=== PATIENT | female | born 1995 | race Caucasian/White ===

== ENCOUNTER 2017-11-06 14:05 | Emergency (ER) | payer BC ==
[2017-11-06 14:13] VITALS: BP 111/67
--- NOTE | 2017-11-06 14:56 | EDPHY ---
H & P Stated Complaint: R ankle injury-twisted yesterday Time Seen by Provider: 11/06/17 14:47 HPI/ROS: CHIEF COMPLAINT: Right ankle pain HISTORY OF PRESENT ILLNESS: The patient is a 22-year-old female who comes to the emergency department complaining of pain and swelling to her right lateral ankle. She states that she twisted it jumping off a fence. She has been walking on it tenderly. She denies other injuries. This happened yesterday. Severity: Moderate Modifying factors: Improves with rest and elevation REVIEW OF SYSTEMS: Constitutional: denies: chills, fever, recent illness, recent injury EENTM: denies: blurred vision, double vision, nose congestion Respiratory: denies: cough, shortness of breath Cardiac: denies: chest pain, irregular heart rate, lightheadedness, palpitations Gastrointestinal/Abdominal: denies: abdominal pain, diarrhea, nausea, vomiting, blood streaked stools Genitourinary: denies: dysuria, frequency, hematuria, pain Musculoskeletal: See HPI Skin: denies: lesions, rash, jaundice, bruising Neurological: denies: headache, numbness, paresthesia, tingling, dizziness, weakness Hematologic/Lymphatic: denies: blood clots, easy bleeding, easy bruising Immunologic/allergic: denies: HIV/AIDS, transplant 10 systems reviewed and negative except as noted EXAM: GENERAL: Well-appearing, well-nourished and in no acute distress. HEAD: Atraumatic, normocephalic. EYES: Pupils equal round and reactive to light, extraocular movements intact, sclera anicteric, conjunctiva are normal. ENT: TMs normal, nares patent, oropharynx clear without exudates. Moist mucous membranes. NECK: Normal range of motion, supple without lymphadenopathy or JVD. LUNGS: Breath sounds clear to auscultation bilaterally and equal. No wheezes rales or rhonchi. HEART: Regular rate and rhythm without murmurs, rubs or gallops. ABDOMEN: Soft, nontender, normoactive bowel sounds. No guarding, no rebound. No masses appreciated. BACK: No CVA tenderness, no spinal tenderness, step-offs or deformities EXTREMITIES: Right ankle swelling and pain laterally, no obvious deformity. No foot tenderness NEUROLOGICAL: Cranial nerves II through XII grossly intact. Normal speech, normal gait. 5/5 strength, normal movement in all extremities, normal sensation , normal reflexes PSYCH: Normal mood, normal affect. SKIN: Warm, dry, normal turgor, no visible rashes or lesions. Source: Patient Exam Limitations: No limitations - Personal History LMP (Females 10-55): 8-14 Days Ago Current Tetanus/Diphtheria Vaccine: No Current Tetanus Diphtheria and Acellular Pertussis (TDAP): No - Medical/Surgical History Hx Asthma: No Hx Chronic Respiratory Disease: No Hx Diabetes: No Hx Cardiac Disease: No Hx Renal Disease: No Hx Cirrhosis: No Hx Alcoholism: No Hx HIV/AIDS: No Hx Splenectomy or Spleen Trauma: No Other PMH: denies - Family History Significant Family History: No pertinent family hx - Social History Smoking Status: Never smoked Alcohol Use: Sober Drug Use: None Constitutional: Initial Vital Signs Temperature (C) 36.7 C 11/06/17 14:10 Heart Rate 88 11/06/17 14:10 Respiratory Rate 16 11/06/17 14:10 Blood Pressure 111/67 11/06/17 14:10 O2 Sat (%) 97 11/06/17 14:10 O2 Delivery Mode Room Air Allergies/Adverse Reactions: No Known Allergies Allergy (Unverified 11/06/17 14:10) Home Medications: Medication Instructions Recorded NK [No Known Home Meds] 11/06/17 Medical Decision Making - Diagnostics Imaging Results: Imaging Impressions Ankle X-Ray 11/06/17 14:13 Impression: No definite fracture of the right ankle. Imaging: I viewed and interpreted images myself (No fracture) ED Course/Re-evaluation: The patient is reassured with the x-ray results. We will place her in a [place] boot and have instructed her on gradual increase in weight-bearing and mobility tolerance. She is happy with this plan. She declines further workup or testing at this time. Differential Diagnosis: Partial list of the Differential diagnosis considered include but were not limited to; ankle sprain, ankle fracture and although unlikely based on the history and physical exam, I also considered dislocation, vascular injury, knee injury, foot fracture. I discussed these differential diagnoses and the plan with the patient as well as the usual and expected course. The patient understands that the diagnosis is provisional and that in medicine we are not always correct and that further workup is often warranted. Usual and customary warnings were given. All of the patient's questions were answered. The patient was instructed to return to the emergency department should the symptoms at all worsen or return, otherwise to followup with the physician as we discussed. Departure - Departure Disposition: Home, Routine, Self-Care Clinical Impression: Sprain of right ankle Qualifiers: Encounter type: initial encounter Involved ligament of ankle: unspecified ligament Qualified Code(s): S93.401A - Sprain of unspecified ligament of right ankle, initial encounter Condition: Fair Instructions: Ankle Sprain (ED) Additional Instructions: Take ibuprofen and Tylenol for pain, elevate and ice her ankle as much as possible for the next 24 hr. Referrals: NONE *PRIMARY CARE P,. [Primary Care Provider] - As per Instructions Ector Yanez MD [Medical Doctor] - 5-7 days, if not improved
== END 2017-11-06 15:05 | disposition home or self-care (01) ==
DX: S93.401A Sprain of unspecified ligament of right ankle, initial encounter (principal); X50.0XXA Overexertion from strenuous movement or load, initial encounter; Y93.39 Activity, other involving climbing, rappelling and jumping off; Y99.8 Other external cause status
CPT/HCPCS: L4386

== ENCOUNTER 2017-11-24 22:27 | Emergency (ER) | payer BC, OTHER ==
[2017-11-24] MEDS ORDERED: NS 1,000 ML IV ONE (22:32)
[2017-11-24] MEDS ORDERED: ONDANSETRON 4 MG/2 ML VIAL IVP ONE (22:32)
--- NOTE | 2017-11-24 22:38 | EDPHY ---
H & P Stated Complaint: ETOH, POSS DRUGS Time Seen by Provider: 11/24/17 22:36 HPI/ROS: HPI CHIEF COMPLAINT: Alcohol Intoxication HISTORY OF PRESENT ILLNESS: 22-year-old female presents emergency room by private vehicle with friends after she drank large amount of alcohol prior to going to her concert. She never made it to the concert as she became too intoxicated was unable to ambulate was vomiting. She presents to the emergency room vomiting. Past Medical History: Unknown medical history Past Surgical History: Unknown surgical history Social History: Large amount of alcohol this evening. Family History: Unknown ROS REVIEW OF SYSTEMS: 10 Systems were reviewed and negative with the exception of the elements mentioned in the history of present illness. Exam Constitutional Intoxicated, triage nursing summary reviewed, vital signs reviewed, Sleepy, smells of alcohol Eyes normal conjunctivae and sclera, horizontal beating nystagmus consistent acute alcohol intoxication, otherwise pupils equal and react to light HENT normal inspection, atraumatic, moist mucus membranes, no epistaxis, neck supple/ no meningismus, no raccoon eyes. Respiratory clear to auscultation bilaterally, normal breath sounds, no respiratory distress, no wheezing. Cardiovascular rate normal, regular rhythm, no murmur, no edema, distal pulses normal. Gastrointestinal soft, non-tender, no rebound, no guarding, normal bowel sounds, no distension, no pulsatile mass. Genitourinary no CVA tenderness. Musculoskeletal no midline vertebral tenderness, full range of motion, no calf swelling, no tenderness of extremities, no meningismus, good pulses, neurovascularly intact. Skin pink, warm, & dry, no rash, skin atraumatic. Neurologic sleepy, intoxicated with alcohol,, alert and oriented x 3, AAOx3, moves all 4 extremities equally, motor intact, sensory intact, CN II-XII intact , , normal vision, normal speech. Psychiatric normal mood/affect. Heme/Lymph/Immune no lymphadenopathy. Differential Diagnosis: Includes but is not limited to in a particular order acute alcohol intoxication, alcohol abuse, dehydration, electrolyte abnormality , nausea vomiting from acute alcohol intoxication Medical Decision Making: Plan for this patient monitoring, IV establishment blood draw, serum alcohol level, electrolytes, IV fluid bolus, IV Zofran nausea and re-examination. Monitor for worsening of condition. Monitor for sobriety. Re-evaluation: Serum alcohol level 354. 1st chemistry panel resulted showed a low calcium low potassium. This is most likely lab error will repeat chemistry. 0437: Patient now completely sober. Clinically stable. Answers my questions appropriately. Ambulates well. Safe for discharge. Source: Patient - Personal History LMP (Females 10-55): Unknown Current Tetanus Diphtheria and Acellular Pertussis (TDAP): Yes - Medical/Surgical History Hx Asthma: No Hx Chronic Respiratory Disease: No Hx Diabetes: No Hx Cardiac Disease: No Hx Renal Disease: No Hx Cirrhosis: No Hx Alcoholism: No Hx HIV/AIDS: No Hx Splenectomy or Spleen Trauma: No Other PMH: denies - Social History Smoking Status: Never smoked Constitutional: Initial Vital Signs Temperature (C) 36.7 C 11/24/17 22:32 Heart Rate 100 11/24/17 22:32 Respiratory Rate 18 11/24/17 22:32 Blood Pressure 114/84 H 11/24/17 22:32 O2 Sat (%) 99 11/24/17 22:32 O2 Delivery Mode Room Air Allergies/Adverse Reactions: No Known Allergies Allergy (Unverified 11/24/17 22:32) Home Medications: Medication Instructions Recorded NK [No Known Home Meds] 11/06/17 Medical Decision Making - Data Points Laboratory Results: Laboratory Results 11/24/17 20:47 11/24/17 23:48 11/24/17 11/24/17 11/24/17 23:48 20:47 20:47 WBC 7.39 10^3/uL 10^3/uL (3.80-9.50) RBC 4.67 10^6/uL 10^6/uL (4.18-5.33) Hgb 13.9 g/dL g/dL (12.6-16.3) Hct 41.3 % % (38.0-47.0) MCV 88.4 fL fL (81.5-99.8) MCH 29.8 pg pg (27.9-34.1) MCHC 33.7 g/dL g/dL (32.4-36.7) RDW 12.0 % % (11.5-15.2) Plt Count 251 10^3/uL 10^3/uL (150-400) MPV 9.9 fL fL (8.7-11.7) Neut % (Auto) 64.1 % % (39.3-74.2) Lymph % (Auto) 23.5 % % (15.0-45.0) [place] % (Auto) 8.1 % % (4.5-13.0) Eos % (Auto) 3.5 % % (0.6-7.6) Baso % (Auto) 0.7 % % (0.3-1.7) Nucleat RBC Rel Count 0.0 % % (0.0-0.2) Absolute Neuts (auto) 4.73 10^3/uL 10^3/uL (1.70-6.50) Absolute Lymphs (auto) 1.74 10^3/uL 10^3/uL (1.00-3.00) Absolute Monos (auto) 0.60 10^3/uL 10^3/uL (0.30-0.80) Absolute Eos (auto) 0.26 10^3/uL 10^3/uL (0.03-0.40) Absolute Basos (auto) 0.05 10^3/uL 10^3/uL (0.02-0.10) Absolute Nucleated RBC 0.00 10^3/uL 10^3/uL (0-0.01) Immature Gran % 0.1 % % (0.0-1.1) Immature Gran # 0.01 10^3/uL 10^3/uL (0.00-0.10) Sodium 144 mEq/L mEq/L 142 mEq/L mEq/L (135-145) (135-145) Potassium 3.4 mEq/L mEq/L 2.6 mEq/L L* mEq/L (3.3-5.0) (3.3-5.0) Chloride 108 mEq/L mEq/L 112 mEq/L H mEq/L (97-110) (97-110) Carbon Dioxide 22 mEq/l mEq/l 17 mEq/l L mEq/l (22-31) (22-31) Anion Gap 14 mEq/L mEq/L 13 mEq/L mEq/L (6-14) (6-14) BUN 10 mg/dL mg/dL 8 mg/dL mg/dL (7-23) (7-23) Creatinine 0.6 mg/dL mg/dL 0.5 mg/dL L mg/dL (0.6-1.0) (0.6-1.0) Estimated GFR > 60 > 60 Glucose 88 mg/dL mg/dL 94 mg/dL mg/dL (70-100) (70-100) Calcium 8.3 mg/dL L mg/dL 7.2 mg/dL L mg/dL (8.5-10.4) (8.5-10.4) Ethyl Alcohol 354 mg/dL H mg/dL (0-10) Medications Given: Discontinued Medications Sodium Chloride (Ns) 1,000 mls @ 0 mls/hr IV EDNOW ONE; Wide Open PRN Reason: Protocol Stop: 11/24/17 22:33 Last Admin: 11/24/17 22:58 Dose: 1,000 mls Ondansetron HCl (Zofran) 4 mg IVP EDNOW ONE Stop: 11/24/17 22:33 Last Admin: 11/24/17 22:56 Dose: 4 mg Departure - Departure Disposition: Home, Routine, Self-Care Clinical Impression: Alcoholic intoxication Qualifiers: Complication of substance-induced condition: uncomplicated Qualified Code(s): F10.920 - Alcohol use, unspecified with intoxication, uncomplicated Condition: Good Instructions: Alcohol Intoxication (ED), Abuse of Alcohol (ED) Referrals: NONE *PRIMARY CARE P,. [Primary Care Provider] - As per Instructions
[2017-11-24 22:55] LABS: PLATELET COUNT 251 10^3/uL (150-400)
[2017-11-25 04:47] VITALS: BP 99/76
== END 2017-11-25 04:47 | disposition home or self-care (01) ==
DX: F10.920 Alcohol use, unspecified with intoxication, uncomplicated (principal); E86.9 Volume depletion, unspecified; Y90.8 Blood alcohol level of 240 mg/100 ml or more
CPT/HCPCS: 96374; G0480; J2405